=== PATIENT | female | born 1930 | race African-American/Black ===

== ENCOUNTER → 2016-09-09 | Outpatient (CLI) | payer MEDICARE, OTHER ==
[2015-10-01 20:57] VITALS: BP 154/76
[~2016-09-09] MED LIST: ALEN70TA3 PO; ALPR0.5T PO; AZIT250T6 PO; CALC500T50 PO; CARV25TA PO; COLE1TAB2 PO; DOCU-27 PO; HYDR-2666 PO; HYDR-2679 PO; Hydrocodone/Acetaminophen PO; LEVO75TA PO; LOSA25TA4 PO; MIRT15TA3 PO; MIRT45TA5 PO; MULT-246 PO; OMEP20TA PO; PARO40TA3 PO; SIMV20TA3 PO; TRIA1CAP13 PO; VITA1CAP PO
--- NOTE | 2016-09-09 12:54 | KCIC ---
PROCEDURE Bilateral digital mammogram with CAD HISTORY Routine screening TECHNIQUE Bilateral digital routine views were obtained with computer-aided detection. COMPARISON September 04, 2014 FINDINGS Density B: Mixed fatty and fibroglandular tissue. There is no suspicious mass, calcifications or areas of architectural distortion. IMPRESSION No suspicious findings. [Recommend routine screening mammography in one year.] This study was interpreted with the benefit of Computerized Aided Detection (CAD). Mammography is not 100% sensitive in detecting breast cancer. Therefore, a self breast exam and a clinical breast exam are very important. A negative mammogram does not negate a clinically suspicious finding and should not result in a delay in biopsying a clinically suspicious abnormality. BI-RADS category 1: Negative. Electronically signed by: Dain Mclain MD (Sep 09, 2016 12:52:51)
== END | disposition home or self-care (01) ==
LOC: KCIC MAMMO 10:08
PROVIDERS: ATTEND Family Medicine
DX: Z12.31 Encounter for screening mammogram for malignant neoplasm of breast (principal)
CPT/HCPCS: G0202; 77067

== ENCOUNTER → 2017-03-06 | Outpatient (CLI) | payer MEDICARE, OTHER ==
[2015-10-01 20:57] VITALS: BP 154/76
[~2017-03-06] MED LIST changes: -CALC500T50 PO; +CALC500T54 PO; +DOCU-109 PO; -DOCU-27 PO; -HYDR-2666 PO; +HYDR-2758 PO; -OMEP20TA PO; +OMEP20TA8 PO
--- NOTE | 2017-03-06 15:59 | KCIC ---
Examination: 3 views of the left knee HISTORY: History of left knee pain for one week COMPARISON: None available FINDINGS: The alignment of the knee joint grossly appears unremarkable. There is no acute fracture identified. Small enthesophyte identified at the attachment of the quadriceps tendon to the patella. IMPRESSION: 1. No acute osseous findings. 2. Small enthesophyte identified at the attachment of the quadriceps tendon to the patella. Electronically signed by: Surinder Hill MD (03/06/2017 3:55 PM) [facility]
== END | disposition home or self-care (01) ==
LOC: KCIC 15:27
PROVIDERS: ATTEND Nurse Practitioner Family
DX: M25.562 Pain in left knee (principal)
CPT/HCPCS: 73562

== ENCOUNTER → 2017-06-28 | Outpatient (CLI) | payer MEDICARE, OTHER | END | disposition home or self-care (01) | LOC: KCIC 15:11 | DX: I70.0 Atherosclerosis of aorta (principal); J40 Bronchitis, not specified as acute or chronic | CPT/HCPCS: 71046 ==

== ENCOUNTER → 2017-06-30 | Outpatient (CLI) | payer MEDICARE, OTHER | END | disposition home or self-care (01) | LOC: RAD 13:30 | DX: M47.896 Other spondylosis, lumbar region (principal) | CPT/HCPCS: 72100 ==

== ENCOUNTER → 2017-07-03 | Outpatient (CLI) | payer MEDICARE, OTHER | END | disposition home or self-care (01) | LOC: KCIC CT 12:18 | DX: J42 Unspecified chronic bronchitis (principal); E04.1 Nontoxic single thyroid nodule; I25.10 Atherosclerotic heart disease of native coronary artery without angina pectoris; R61 Generalized hyperhidrosis | CPT/HCPCS: 71250 ==

== ENCOUNTER → 2017-09-13 | Outpatient (CLI) | payer MEDICARE, OTHER | END | disposition home or self-care (01) | LOC: KCIC 03:28 | DX: R07.81 Pleurodynia (principal); M41.85 Other forms of scoliosis, thoracolumbar region | CPT/HCPCS: 71101 ==

== ENCOUNTER → 2017-09-13 | Outpatient (CLI) | payer MEDICARE, OTHER | END | disposition home or self-care (01) | LOC: KCIC MAMMO 15:13 | DX: Z12.31 Encounter for screening mammogram for malignant neoplasm of breast (principal) | CPT/HCPCS: 77063; 77067 ==

== ENCOUNTER → 2017-10-02 | Outpatient (CLI) | payer MEDICARE, OTHER ==
[2017-10-02 14:02] LABS: ISTAT CREATININE 1.1 mg/dL (0.6-1.1)
[2017-10-02] MEDS: GADOBUTROL 7.5 MMOL/7.5 ML VIAL IV (14:45)
== END | disposition home or self-care (01) ==
LOC: KCIC MRI 13:24
DX: H90.42 Sensorineural hearing loss, unilateral, left ear, with unrestricted hearing on the contralateral side (principal); I10 Essential (primary) hypertension; E78.5 Hyperlipidemia, unspecified; E78.00 Pure hypercholesterolemia, unspecified
CPT/HCPCS: 70553; 82565; A9585

== ENCOUNTER → 2017-11-03 | Outpatient (CLI) | payer MEDICARE, OTHER | END | disposition home or self-care (01) | LOC: KCIC CT 09:09 | DX: J40 Bronchitis, not specified as acute or chronic (principal); R91.8 Other nonspecific abnormal finding of lung field | CPT/HCPCS: 71250 ==

== ENCOUNTER → 2018-02-22 | Outpatient (CLI) | payer MEDICARE, OTHER ==
[2015-10-01 20:57] VITALS: BP 154/76
[~2018-02-22] MED LIST changes: -LOSA25TA4 PO; +LOSA25TA5 PO
--- NOTE | 2018-02-22 14:11 | KCIC ---
CT of the abdomen and pelvis without contrast. 02/22/2018 2:00 PM Indication: Left flank pain. Nausea. Vomiting. Epigastric pain. Symptoms x1 month. History of cholecystectomy. Comparison Study: None. Technique: Multidetector CT imaging of the abdomen pelvis is obtained without administration of contrast. Findings: Visualized lung bases demonstrate no acute abnormality. The liver is unremarkable in appearance. Prior cholecystectomy is noted. Spleen is unremarkable in appearance. Adrenal glands are unremarkable in appearance. Pancreas is grossly unremarkable in appearance. Small hiatal hernia is noted. There is no evidence of bowel obstruction. No evidence of acute inflammatory change involving the bowel is identified. Colonic Diverticulosis noted. Appendix is unremarkable in appearance. No free fluid or free air is seen in the abdomen or pelvis. The bladder is probably decompressed. Dextro scoliosis of the lumbar spine is seen with associated degenerative changes. No acute osseous normality is not identified. IMPRESSION: No evidence of acute intra-abdominal abnormality is identified CT DOSING PQRS STATEMENT: One or more of the following individualized dose reduction techniques were utilized for this examination: 1. Automated exposure control 2. Adjustment of the mA and/or kV according to patient size 3. Use of iterative reconstruction technique Electronically signed by: Jamey Kc MD (02/22/2018 2:07 PM) [facility]
== END | disposition home or self-care (01) ==
LOC: KCIC CT 13:26
PROVIDERS: ATTEND Nurse Practitioner Family
DX: K57.30 Diverticulosis of large intestine without perforation or abscess without bleeding (principal); M41.86 Other forms of scoliosis, lumbar region; I10 Essential (primary) hypertension; E78.00 Pure hypercholesterolemia, unspecified; E03.9 Hypothyroidism, unspecified; I25.10 Atherosclerotic heart disease of native coronary artery without angina pectoris; K21.9 Gastro-esophageal reflux disease without esophagitis; Z90.49 Acquired absence of other specified parts of digestive tract; Z88.8 Allergy status to other drugs, medicaments and biological substances
CPT/HCPCS: 74176

== ENCOUNTER → 2018-04-24 | Outpatient (CLI) | payer MEDICARE, OTHER ==
[2015-10-01 20:57] VITALS: BP 154/76
--- NOTE | 2018-04-24 16:25 | KCIC ---
CHEST PA LATERAL Clinical indications: Follow-up of lung nodule COMPARISON: Chest x-ray dated June 28, 2017. Findings: Hyperinflation is seen consistent with COPD. No acute lung infiltrate or pleural effusion or pulmonary edema or lung mass or pneumothorax is seen. The heart size, pulmonary vasculature, mediastinum and both wilberto are unremarkable. The osseous structures appear intact. Impression: No acute radiographic abnormality is seen. The previously seen lung nodules noted on the CT study of November 03, 2017 cannot be appreciated on a chest x-ray. Therefore, this finding will need to be followed by CT. Electronically signed by: Robert Degroot MD (04/24/2018 4:22 PM) [facility] [place]
== END | disposition home or self-care (01) ==
LOC: KCIC 15:49
PROVIDERS: ATTEND Internal Medicine Critical Care Medicine
DX: R91.1 Solitary pulmonary nodule (principal); Z88.8 Allergy status to other drugs, medicaments and biological substances
CPT/HCPCS: 71046

== ENCOUNTER → 2018-08-01 | Outpatient (CLI) | payer MEDICARE, OTHER ==
[2015-10-01 20:57] VITALS: BP 154/76
[~2018-08-01] MED LIST changes: -HYDR-2758 PO; +HYDR-2761 PO; -LOSA25TA5 PO; +LOSA25TA54 PO; -MIRT45TA5 PO; +MIRT45TA53 PO
--- NOTE | 2018-08-01 15:37 | KCIC ---
MR of the right shoulder HISTORY: Right shoulder pain and decreased range of motion, fell one month ago. TECHNIQUE: Routine multiplanar sequences are obtained. FINDINGS: The acromioclavicular joint is mildly degenerative, mild undersurface hypertrophy. Moderate thickening and signal within the rotator cuff compatible with tendinosis. No measurable supraspinatus or infraspinatus tendon tear. Mild partial subscapularis tendon tear. No significant subdeltoid bursal effusion. No significant joint effusion. Incidentally noted thick cordlike middle glenohumeral ligament, a normal variant. Superior labrum is slightly distorted compatible with chronic degeneration or degenerative tear. Biceps tendon is intact. No bone lesion. No acute fracture. No evidence of acute soft tissue abnormality. IMPRESSION: 1. Rotator cuff tendinosis. Mild partial tearing of the subscapularis tendon. 2. Superior labral degeneration versus chronic tear. 3. Acromioclavicular joint primary osteoarthritis. Electronically signed by: Rivas Gasca MD (08/01/2018 3:35 PM) [facility]
== END | disposition home or self-care (01) ==
LOC: KCIC MRI 11:51
PROVIDERS: ATTEND Nurse Practitioner Family
DX: S46.811A Strain of other muscles, fascia and tendons at shoulder and upper arm level, right arm, initial encounter (principal); M19.011 Primary osteoarthritis, right shoulder; M75.81 Other shoulder lesions, right shoulder; X58.XXXA Exposure to other specified factors, initial encounter; Y93.89 Activity, other specified; Y92.89 Other specified places as the place of occurrence of the external cause; Y99.8 Other external cause status
CPT/HCPCS: 73221

== ENCOUNTER → 2018-08-08 | Outpatient (CLI) | payer MEDICARE, OTHER ==
[2015-10-01 20:57] VITALS: BP 154/76
--- NOTE | 2018-08-08 15:42 | KCIC ---
3 view study of the left ankle Clinical indications: Left ankle pain. Patient tripped and cramping yesterday. Pain is across the anterior ankle. FINDINGS: No acute fracture or dislocation or osteolytic process is seen involving the mortise ankle joint. The mortise ankle joint is intact. Small avulsion fracture of the dorsal aspect of the navicular bone is seen. IMPRESSION: Posttraumatic avulsion fracture of the dorsal aspect of the navicular bone. Electronically signed by: Robert Degroot MD (08/08/2018 3:39 PM) [id number]
== END | disposition home or self-care (01) ==
LOC: KCIC 12:25
PROVIDERS: ATTEND Nurse Practitioner Family
DX: S92.152A Displaced avulsion fracture (chip fracture) of left talus, initial encounter for closed fracture (principal); X58.XXXA Exposure to other specified factors, initial encounter; Y93.89 Activity, other specified; Y92.89 Other specified places as the place of occurrence of the external cause; Y99.8 Other external cause status
CPT/HCPCS: 73610

== ENCOUNTER → 2018-09-20 | Outpatient (CLI) | payer MEDICARE, OTHER ==
[2015-10-01 20:57] VITALS: BP 154/76
--- NOTE | 2018-09-20 16:10 | KCIC ---
Bilateral digital screening mammograms with 3-D tomosynthesis: Reason for examination: Routine screening. Comparison is made to previous studies dated 09/13/2017 and 09/09/2016. Bilateral mammograms in CC and oblique projections were obtained with 2-D imaging and 3-D tomosynthesis imaging on a Siemens Inspiration unit and reviewed on the workstation. Interpretation was made with the benefit of CAD. The skin and nipples show no abnormalities. No abnormal axillary lymph nodes are seen. The breast parenchyma shows scattered fatty and fibroglandular density. (Breast density: Category B.) There are no dominant masses, suspicious calcifications or architectural distortion. Impression: No evidence of malignancy. Recommend routine screening. BI-RAD Category 1: Negative. "Our facility is accredited by the [employer] Mammography Program." This patient's information has been entered into a reminder system for the patient to be notified with the results of her examination and a target date for the next mammogram. Electronically signed by: Lyndsay Johnson MD (09/20/2018 4:07 PM) [facility]
== END | disposition home or self-care (01) ==
LOC: KCIC MAMMO 13:09
PROVIDERS: ATTEND Family Medicine
DX: Z12.31 Encounter for screening mammogram for malignant neoplasm of breast (principal)
CPT/HCPCS: 77063; 77067

== ENCOUNTER → 2019-03-26 | Outpatient (CLI) | payer MEDICARE, OTHER ==
[2015-10-01 20:57] VITALS: BP 154/76
--- NOTE | 2019-03-26 13:23 | KCIC ---
EXAM: Right knee, 3 views. HISTORY: Pain. COMPARISON: None. FINDINGS: 3 views of the right knee are obtained. There is no fracture, dislocation or subluxation. There is trace joint fluid. There is slight enthesopathy along the superior patella. IMPRESSION: 1. Trace right knee joint fluid. 2. No acute osseous finding. Electronically signed by: Key Holland MD (03/26/2019 1:20 PM) [facility]
== END | disposition home or self-care (01) ==
LOC: KCIC 09:42
PROVIDERS: ATTEND Nurse Practitioner Family
DX: M25.461 Effusion, right knee (principal); M76.9 Unspecified enthesopathy, lower limb, excluding foot
CPT/HCPCS: 73562

== ENCOUNTER → 2019-06-13 | Outpatient (CLI) | payer MEDICARE, OTHER ==
[2015-10-01 20:57] VITALS: BP 154/76
[~2019-06-13] MED LIST changes: +SIMV20TA18 PO; -SIMV20TA3 PO
--- NOTE | 2019-06-13 12:17 | KCIC ---
EXAM: Dual energy x-ray absorptiometry (DEXA). HISTORY: Postmenopausal female presents for osteoporosis screening. COMPARISON: 09/18/2014. TECHNIQUE: Dual energy x-ray absorptiometry of the lumbar spine and left hip was performed. Calculation of bone mineral density based on standard deviations above or below the expected young adult normal value (T-score) was completed. FINDINGS: The average bone mineral density in the 1st through 4th lumbar vertebrae is 1.607 g/cmxcm, corresponding with a T-score of 5.1. There has been an 18.8% increase in density of the lumbar spine compared to the prior study. The average total bone mineral density in the left hip is 0.998 g/cmxcm, corresponding with a T-score of 0.5. There has been a 1.2% decrease in density of the left hip compared to the prior study. IMPRESSION: Normal bone mineral density. Note: Definitions established by the World Health Organization: 1. Normal: T-score is -1.0 or above. 2. Osteopenia: T-score is between -1.0 and -2.5 . 3. Osteoporosis: T-score is -2.5 or below. Electronically signed by: Key Holland MD (06/13/2019 12:14 PM) [facility]
== END | disposition home or self-care (01) ==
LOC: KCIC DEXA 11:36
PROVIDERS: ATTEND Family Medicine
DX: M85.88 Other specified disorders of bone density and structure, other site (principal); Z78.0 Asymptomatic menopausal state
CPT/HCPCS: 77080

== ENCOUNTER → 2020-01-15 | Outpatient (CLI) | payer MEDICARE, OTHER ==
[2019-12-12 10:56] VITALS: BP 124/53
[~2020-01-15] MED LIST changes: +ASPI-886 PO; +LIDO700A21 TD; +LOSA-73 PO
--- NOTE | 2020-01-15 17:41 | KCIC ---
EXAM: CT Head without IV contrast INDICATION: Reason: NEW DAILY HEADACHES, FELL NOVEMBER 2019 / Spl. Instructions: / History: TECHNIQUE: Multi-detector row CT images were obtained of the head without the use of IV contrast. All CT scans performed at this facility utilize dose optimization techniques as appropriate to the exam, including the following: Automated exposure control and adjustment of the mA and/or KV according to patient size (this includes techniques or standardized protocols for targeted exams where dose is indication/reason for exam). COMPARISON: MRI brain 10/02/2017 FINDINGS: BRAIN PARENCHYMA: No evidence of acute intraparenchymal hemorrhage or infarct. No abnormal parenchymal density or mass. VENTRICLES & EXTRA-AXIAL SPACES: Ventricles are within normal limits. Basilar cisterns are patent. No pathologic extra-axial fluid collection or mass. Prominent CSF spaces over the bilateral frontal lobes is redemonstrated, measuring 4 mm each. ORBITS: Orbital contents are unremarkable. SINUSES: Visualized paranasal sinuses and mastoid air cells are clear. OSSEOUS & SOFT TISSUES: Calvarium and skull base are intact. IMPRESSION: No acute intracranial pathology. Bilateral prominence of the CSF spaces over the frontal lobes is favored to reflect sequelae of generalized parenchymal volume loss. If symptoms persist, follow-up can be pursued. Electronically signed by: Mariano Hussein MD (01/15/2020 5:37 PM) [id number]
== END | disposition home or self-care (01) ==
LOC: KCIC CT 13:38
PROVIDERS: ATTEND Family Medicine
DX: G44.52 New daily persistent headache (NDPH) (principal)
CPT/HCPCS: 70450

== ENCOUNTER → 2020-02-10 | Outpatient (CLI) | payer MEDICARE, OTHER ==
[2019-12-12 10:56] VITALS: BP 124/53
[~2020-02-10] MED LIST changes: +REGADENOSON 0.4 MG/5 ML DISP.SYRIN. IV ONE
--- NOTE | 2020-02-10 14:47 | RAD ---
MR#: [id number] Date of Study: 02/10/2020 Ordering Physician: FELICITY SANTACRUZ, Referring Physician: ELIO RODRIGUEZ Tech: RT Rosa (R) (N) APPROVED REPORT Test Type: Pharmacological Stress Nurse/Tech: Bety Cole RN Test Indications: TOBIAS Cardiac History: High cholesterol, Hypertension Medications: See Electronic Medical Record Medical History: See Electronic Medical Record Resting ECG: SR Resting Heart Rate: 63 bpm Resting Blood Pressure: 151/62mmHg Pretest Chest Pain: No chest pain Nurse/Tech Notes S1S2, Lungs CTA Consent: The procedure was explained to the patient in lay terms. Informed consent was witnessed. Obi eout was entered into [employer]. History and Stress Test performed by SHAHEEN Tavares, BOGDAN (R) (N) Pharm. Details Pharmacologic stress testing was performed using 0.4mg per 5ml of regadenoson given intravenously ove r 7-10 seconds. Stress Symptoms Dyspnea, Flushing, Fatigue, Dizziness POST EXERCISE Reason for Termination: Infusion complete Max HR: 87 bpm Max Blood Pressure: 143/65mmHg Blood Pressure response to exercise: Normal blood pressure response during stress. Heart Rate response to exercise: WNL Chest Pain: No. Arrhythmia: No. ST Change: No. INTERPRETATION Stress EKG Conclusion: Baseline EKG showed sinus rhythm. No ischemic changes at peak stress. No arr hythmias. Imaging Protocol IMAGE PROTOCOL: Rest Tc-99m/stress Tc-99m 1 day Rest: Stress: Viability: Radiopharm.Tc99m [id number] Sestamibi Dose10.4mCi 29mCi Duration 15min. 10min. Img Date 02/10/2020 02/10/2020 Inj-Img [id number]. 60min. Rest Admin Site:IV - Right AntecubitalAdministrator:SHAHEEN Tavares ARRT (R)(N) Stress Admin Site: IV - Right AntecubitalAdministrator: SHAHEEN Tavares ARRT (R)(N) STRESS DATA End Diast. Vol.42.0mlAv. Heart Rate70.0bpm End Syst. Vol.2.0mlCO Index BSA0.0L/min Myocardial Mass88.0gEject. Yonyiabg93.0% Stress Rates Pk. Fill Rate2.54EDV/secLVtime Pk. Fill 255.65msec Pk. Empty Rate5.66ESV/secLVtime Pk. Esgsw702.28msec 1/3 Pk. Fill1.47EDV/sec Stress Scores Regional WT0.00Summed WT0.00 Regional WM0.00Summed WM1.00 Study quality was good. Left Ventricular size was Normal at Rest and Stress. Lung uptake was . Left Ventricular ejection fraction is >80%. The rest and stress images show normal perfusion, normal contraction and thickening. LV Perf. Quant 17 Seg. SSS3.00 17 Seg. SRS3.00 17 Seg. SDS2.00 Stress Defect Extent (% LAD)0.00Rest Defect Extent (% LAD)4.40Rev. Defect Extent (% LAD)0.00 Stress Defect Extent (% LCX) 26.30Rest Defect Extent (% LCX)21.30Rev. Defect Extent (% LCX)6.30 Stress Defect Extent (% RCA)0.00Rest Defect Extent (% RCA)0.00Rev. Defect Extent (% RCA)0.00 Stress Defect Extent (% JW)4.60Rest Defect Extent (% JW)7.80Rev. Defect Extent (% JW)1.10 Conclusion 1. Regadenoson cardioisotope stress test did not show any evidence of ischemia or infarct. 2. Normal left ventricular systolic function with ejection fraction calculated at >80%. 3. Low risk for cardiac events. Signed by : Felicity Santacruz, Electronically Approved : 02/10/2020 14:47:19
== END ==
LOC: NM 10:45
PROVIDERS: ATTEND Internal Medicine Cardiovascular Disease
DX: R06.09 Other forms of dyspnea (principal)
CPT/HCPCS: 78452; 93017; A9500; J2785

== ENCOUNTER → 2020-05-08 | Outpatient (CLI) | payer MEDICARE, OTHER ==
[2019-12-12 10:56] VITALS: BP 124/53
[~2020-05-08] MED LIST changes: -REGADENOSON 0.4 MG/5 ML DISP.SYRIN. IV ONE
--- NOTE | 2020-05-08 16:17 | KCIC ---
KNEE LEFT 3V DATE: 05/08/2020 12:00 AM INDICATION: ARTHRITIS OF KNEE LEFT. Posterior left knee pain, eval for arthritis. / History: COMPARISON: None. FINDINGS: Bones: There is no evidence of acute fracture or dislocation. Superior patellar enthesophyte. Joints: Mild tricompartmental degenerative changes. Small knee joint effusion. Miscellaneous: None. IMPRESSION: 1. Mild tricompartmental degenerative changes. 2. Small knee joint effusion. Electronically signed by: Mamadou Arango MD (05/08/2020 4:14 PM) [id number]
== END ==
LOC: KCIC 15:20
PROVIDERS: ATTEND Family Medicine
DX: M17.12 Unilateral primary osteoarthritis, left knee (principal); M25.462 Effusion, left knee
CPT/HCPCS: 73562

== ENCOUNTER → 2020-07-14 | Outpatient (CLI) | payer MEDICARE, OTHER ==
[2019-12-12 10:56] VITALS: BP 124/53
[~2020-07-14] MED LIST changes: +MIRT-7 PO; -MIRT15TA3 PO
--- NOTE | 2020-07-14 17:33 | KCIC ---
Three-view right knee radiographs 07/14/2020 CLINICAL HISTORY: Right knee pain. AP, lateral and sunrise digital radiographs of right knee were obtained. No fracture or dislocation o f the right knee is seen. Mild degenerative changes are seen involving all 3 compartments of the righ t knee. These consist of joint compartment narrowing, subchondral sclerosis and very mild associated osteophyte formation. This particularly involves the medial compartment and patellofemoral compartmen t. There is a very small right knee joint effusion. IMPRESSION: Mild degenerative changes are seen involving the right knee as discussed above. No acute osseous abnormality is seen. Electronically signed by: Maik Malik MD (07/14/2020 5:31 PM) [id number]
== END ==
LOC: KCIC 15:29
PROVIDERS: ATTEND Nurse Practitioner Gerontology
DX: M17.11 Unilateral primary osteoarthritis, right knee (principal); M25.461 Effusion, right knee; M25.761 Osteophyte, right knee
CPT/HCPCS: 73562